=== PATIENT | female | born 1960 | race Caucasian/White ===

== ENCOUNTER 2018-04-25 10:40 | Emergency (ER) | payer SELFPAY ==
[~2018-04-25] VITALS: Ht 165.1 cm; Wt 90.7 kg
[2018-04-25 10:56] VITALS: Ht 165.1 cm; Wt 90.7 kg
[2018-04-25 12:37] VITALS: BP 128/68
== END 2018-04-25 12:37 | disposition home or self-care (01) ==
LOC: ED 10:40
DX: J11.1 Influenza due to unidentified influenza virus with other respiratory manifestations (principal); J40 Bronchitis, not specified as acute or chronic
CPT/HCPCS: 87804

== ENCOUNTER 2018-07-15 19:05 | Emergency (ER) | payer SELFPAY ==
[~2018-07-15] VITALS: Ht 162.6 cm; Wt 95.7 kg
[2018-07-15 19:25] VITALS: Ht 162.6 cm; Wt 95.7 kg
[2018-07-15 21:21] VITALS: BP 119/77
== END 2018-07-15 21:21 | disposition home or self-care (01) ==
LOC: ED 19:05
DX: J45.901 Unspecified asthma with (acute) exacerbation (principal); F17.210 Nicotine dependence, cigarettes, uncomplicated; Z98.890 Other specified postprocedural states
CPT/HCPCS: J7620; Q0092

== ENCOUNTER 2019-02-20 21:06 | Inpatient (IN) | payer MEDICAID ==
[~2019-02-20] VITALS: Ht 162.6 cm; Wt 88.5 kg
[2019-02-20 21:11] VITALS: Ht 162.6 cm; Wt 88.5 kg
[2019-02-20 21:47] LABS: BASOPHIL % 0 % (0-2); PLATELET COUNT 186 x10^3mcL (130-400); RED CELL DISTRIBUTION WIDTH 13.9 % (11.5-14.5)
[2019-02-20 22:13] LABS: CALCIUM 7.7 mg/dL (8.5-10.1); CARBON DIOXIDE 28.3 mmol/L (21-32); CHLORIDE SERUM 102 mmol/L (98-107); CREATININE SERUM 0.8 mg/dL (0.6-1.0); GFR1 > 60 mL/min; GLUCOSE SERUM 111 mg/dL (74-106); POTASSIUM SERUM 3.5 mmol/L (3.5-5.1); SODIUM SERUM 137 mmol/L (136-145)
[2019-02-20 22:23] LABS: ALBUMIN 3.2 g/dL (3.4-5.0); ALKALINE PHOSPHATASE 164 U/L (46-116); ALT/SGPT 23 U/L (14-59); AST/SGOT 19 U/L (15-37); BILIRUBIN TOTAL 0.37 mg/dL (0.20-1.00); CHOLESTEROL 156 mg/dL (<200); HDL CHOLESTEROL 46 mg/dL (40-60); LIPASE 129 IU/L (73-393); T4(THYROXINE) 7.4 ug/dL (4.7-13.3); TOTAL PROTEIN, SERUM 7.5 g/dL (6.4-8.2)
[2019-02-20 22:40] LABS: microscopic required? NO
[2019-02-20 22:50] LABS: urine erythrocyte NEGATIVE (NEGATIVE)
[2019-02-20 23:06] LABS: AMPHETAMINE QUAL UR POSITIVE (See below)
[2019-02-21] VITALS (7 sets, daily range): BP systolic 100–150; BP diastolic 55–78
[2019-02-21 06:53] LABS: BASOPHIL % 0.1 % (0-2); PLATELET COUNT 183 x10^3mcL (130-400); RED CELL DISTRIBUTION WIDTH 13.8 % (11.5-14.5)
[2019-02-21 07:12] LABS: CARBON DIOXIDE 25.6 mmol/L (21-32); CHLORIDE SERUM 104 mmol/L (98-107); CREATININE SERUM 0.9 mg/dL (0.6-1.0); GFR1 > 60 mL/min; GLUCOSE SERUM 224 mg/dL (74-106); POTASSIUM SERUM 3.8 mmol/L (3.5-5.1); SODIUM SERUM 141 mmol/L (136-145)
[2019-02-22 05:14] VITALS: BP 129/74
[2019-02-22 07:12] LABS: CALCIUM 7.9 mg/dL (8.5-10.1); CARBON DIOXIDE 24.3 mmol/L (21-32); CHLORIDE SERUM 107 mmol/L (98-107); CREATININE SERUM 0.7 mg/dL (0.6-1.0); GFR1 > 60 mL/min; GLUCOSE SERUM 195 mg/dL (74-106); MAGNESIUM 2.1 mg/dL (1.8-2.4); PHOSPHOROUS 3.2 mg/dL (2.5-4.9); POTASSIUM SERUM 4.1 mmol/L (3.5-5.1); SODIUM SERUM 141 mmol/L (136-145)
[2019-02-22 07:15] LABS: PLATELET COUNT 185 x10^3mcL (130-400); RED CELL DISTRIBUTION WIDTH 14.1 % (11.5-14.5)
[2019-02-22 07:50] LABS: BASOPHIL % 0 % (0-2)
[2019-02-22 08:10] VITALS: BP 121/67
[2019-02-22 11:46] VITALS: BP 122/55
[2019-02-22] MEDS ORDERED: TAM75 PO (15:39)
[2019-02-22] MEDS ORDERED: LEV500 PO (15:40)
[2019-02-22] MEDS ORDERED: PREDNISONE20 MG PO (15:41)
[2019-02-22 16:19] VITALS: BP 113/60
[2019-02-22] MEDS ORDERED: APLICARE ANTIS118 M3 TOP (17:03)
[2019-02-22] MEDS ORDERED: BACO TOP (17:03)
== END 2019-02-22 17:00 | disposition home or self-care (01) | DRG 140 ==
LOC: ED 21:06 → DU 23:07
PROVIDERS: Emergency Medicine; ADMIT Internal Medicine
DX: J44.1 Chronic obstructive pulmonary disease with (acute) exacerbation (principal); J96.01 Acute respiratory failure with hypoxia; J10.00 Influenza due to other identified influenza virus with unspecified type of pneumonia; E44.1 Mild protein-calorie malnutrition; F15.20 Other stimulant dependence, uncomplicated; F12.20 Cannabis dependence, uncomplicated; I10 Essential (primary) hypertension; E66.9 Obesity, unspecified; Z68.32 Body mass index [BMI] 32.0-32.9, adult; Z87.891 Personal history of nicotine dependence
CPT/HCPCS: 36600; 82962; 83880; 87804; 94150; G0378; J1885; J1956; J2930; J7030; J7613; J7620; J7644; Q0092